=== PATIENT | female | born 1965 | race Caucasian/White ===

== ENCOUNTER 2021-07-04 10:06 | Day surgery (SDC) | payer OTHER, SELFPAY ==
[~2021-07-04] VITALS: Ht 157.5 cm; Wt 64.9 kg
[~2021-07-04 10:06] MED LIST: ALPR0.5T PO; SERT25TA PO
[2021-07-04] MEDS ORDERED: NS IRRIG SOLN 1000 ML IR ONE (12:57)
[2021-07-04] MEDS ORDERED: BUPIVACAINE /PF 0.25% 30 ML VIAL INJ ONE (12:57)
[2021-07-04] MEDS ORDERED: METOCLOPRAMIDE HCL 10 MG/2 ML VIAL ONE (12:57)
[2021-07-04] MEDS ORDERED: WATER FOR IRRIGATION,STERILE 1,000 ML IRRIG.SOLN IR ONE (12:57)
[2021-07-04] MEDS ORDERED: DEXAMETHASONE SOD PHOSPHATE 4 MG/ML VIAL ONE (12:57)
[2021-07-04] MEDS ORDERED: MIDAZOLAM HCL 5 MG/ML VIAL (VERSED) IV ONE (12:57)
[2021-07-04] MEDS ORDERED: SEVOFLURANE 15 MIN GAS INH ONE (12:57)
[2021-07-04] MEDS ORDERED: PROPOFOL 200MG/ 20ML VIAL (DIPRIVAN) IV ONE (12:57)
[2021-07-04] MEDS ORDERED: fentaNYL CITRATE/PF 100 MCG/2 ML AMP ONE (12:57)
[2021-07-04] MEDS ORDERED: LR 1,000 ML IV.SOLN IV ONE (12:57)
[2021-07-04] MEDS ORDERED: ONDANSETRON HCL 4 MG/2 ML VIAL ONE (12:57)
[2021-07-04 15:05] VITALS: BP_SYST 133
== END 2021-07-04 14:50 | disposition home or self-care (01) ==
LOC: SDS 10:06 → SMU 10:07 → SDS 14:50
PROVIDERS: ATTEND Orthopaedic Surgery
DX: G56.01 Carpal tunnel syndrome, right upper limb (principal); Z79.899 Other long term (current) drug therapy; Z20.822 Contact with and (suspected) exposure to COVID-19
CPT/HCPCS: 64721; J1100; J2250; J2405; J2704; J2765; J3010; J3490; J7120; U0003

== ENCOUNTER 2022-01-30 10:01 | Day surgery (SDC) | payer OTHER ==
[~2022-01-30] VITALS: Ht 157.5 cm; Wt 67.1 kg
[2022-01-30] MEDS ORDERED: LR 1,000 ML IV.SOLN IV ONE (12:34)
[2022-01-30] MEDS ORDERED: KETOROLAC TROMETHAMINE 30 MG VIAL ONE (12:34)
[2022-01-30] MEDS ORDERED: PROPOFOL 200MG/ 20ML VIAL (DIPRIVAN) IV ONE (12:34)
[2022-01-30] MEDS ORDERED: METOCLOPRAMIDE HCL 10 MG/2 ML VIAL ONE (12:34)
[2022-01-30] MEDS ORDERED: SEVOFLURANE 15 MIN GAS INH ONE (12:34)
[2022-01-30] MEDS ORDERED: fentaNYL CITRATE/PF 100 MCG/2 ML AMP ONE (12:34)
[2022-01-30] MEDS ORDERED: ONDANSETRON HCL 4 MG/2 ML VIAL ONE (12:34)
[2022-01-30] MEDS ORDERED: ONDANSETRON HCL 4 MG/2 ML VIAL IVP PRN (13:30)
[2022-01-30] MEDS ORDERED: LABETALOL 100 MG/ 20ML VIAL IVP PRN (13:30)
[2022-01-30] MEDS ORDERED: hydrALAZINE HCL 20 MG/ML VIAL IVP PRN (13:30)
[2022-01-30] MEDS ORDERED: LR 1,000 ML IV SCH (13:30)
[2022-01-30] MEDS ORDERED: HYDROmorphone 1 MG/ML INJ. CARTRIDGE IVP PRN (13:30)
[2022-01-30 17:31] VITALS: BP_SYST 143
== END 2022-01-30 14:50 | disposition home or self-care (01) ==
LOC: SDS 10:01 → SMU 10:07 → SDS 14:50
PROVIDERS: ATTEND Orthopaedic Surgery
DX: G56.02 Carpal tunnel syndrome, left upper limb (principal); Z98.890 Other specified postprocedural states; Z20.822 Contact with and (suspected) exposure to COVID-19
CPT/HCPCS: 36415 ×2; 64721; 87426; 87635; J1885; J2405; J2704; J2765; J3010; J7120; U0003

== ENCOUNTER 2022-03-25 07:21 | Day surgery (SDC) | payer OTHER ==
[~2022-03-25] VITALS: Ht 157.5 cm; Wt 67.1 kg
[2022-03-25] MEDS ORDERED: MIDAZOLAM HCL 5 MG/5 ML VIAL ONE (08:40)
[2022-03-25] MEDS ORDERED: DIPHENHYDRAMINE INJ 50 MG/ML VIAL ONE (08:41)
[2022-03-25] MEDS ORDERED: LIDOCAINE 2%, 20 ML MDV ONE (10:37)
[2022-03-25] MEDS ORDERED: methylPREDNISolone ACETATE 40 MG/ML ONE (10:37)
[2022-03-25] MEDS ORDERED: BUPIVACAINE /PF 0.25% 30 ML VIAL INJ ONE (10:37)
[2022-03-25] MEDS ORDERED: IOHEXOL 300 mgI/mL, 50 mL INFUS..BTL IV ONE (10:37)
[2022-03-25 14:16] VITALS: BP_SYST 145
== END 2022-03-25 11:30 | disposition home or self-care (01) ==
LOC: SDS 07:21 → SMU 07:21 → SDS 11:30
PROVIDERS: ATTEND Internal Medicine
DX: M51.16 Intervertebral disc disorders with radiculopathy, lumbar region (principal); M47.26 Other spondylosis with radiculopathy, lumbar region; G89.4 Chronic pain syndrome; Z90.49 Acquired absence of other specified parts of digestive tract; Z20.822 Contact with and (suspected) exposure to COVID-19
CPT/HCPCS: 36415 ×2; 62323; 87426; U0003; J3490; J1200; J2001; J1030; J2250; Q9967; 76000

== ENCOUNTER 2022-06-24 07:27 | Day surgery (SDC) | payer OTHER ==
[~2022-06-24] VITALS: Ht 157.5 cm; Wt 64.4 kg
[2022-06-24] MEDS ORDERED: MIDAZOLAM HCL 5 MG/5 ML VIAL ONE (09:25)
[2022-06-24] MEDS ORDERED: fentaNYL CITRATE/PF 100 MCG/2 ML AMP ONE (09:27)
[2022-06-24] MEDS ORDERED: DIPHENHYDRAMINE INJ 50 MG/ML VIAL ONE (09:27)
[2022-06-24] MEDS ORDERED: ONDANSETRON HCL 4 MG/2 ML VIAL ONE (09:28)
[2022-06-24 13:26] VITALS: BP_SYST 116
== END 2022-06-24 11:40 | disposition home or self-care (01) ==
LOC: SDS 07:27 → SMU 07:29 → SDS 11:40
PROVIDERS: ATTEND Internal Medicine
DX: M51.16 Intervertebral disc disorders with radiculopathy, lumbar region (principal); M47.26 Other spondylosis with radiculopathy, lumbar region; G89.4 Chronic pain syndrome; Z90.49 Acquired absence of other specified parts of digestive tract; Z79.899 Other long term (current) drug therapy; Z20.822 Contact with and (suspected) exposure to COVID-19
CPT/HCPCS: 36415; 62323; U0003; J1200; J2250; J3010; 76000; J2405

== ENCOUNTER 2023-02-24 06:48 | Day surgery (SDC) | payer OTHER ==
[~2023-02-24] VITALS: Ht 160 cm; Wt 65.8 kg
[2023-02-24] MEDS ORDERED: MIDAZOLAM HCL 5 MG/5 ML VIAL ONE (08:53)
[2023-02-24] MEDS ORDERED: fentaNYL CITRATE/PF 100 MCG/2 ML AMP ONE (08:54)
[2023-02-24] MEDS ORDERED: ONDANSETRON HCL 4 MG/2 ML VIAL ONE (08:54)
[2023-02-24] MEDS ORDERED: DIPHENHYDRAMINE INJ 50 MG/ML VIAL ONE (08:54)
[2023-02-24] MEDS ORDERED: NORMAL SALINE 10 ML VIAL ONE (09:00)
[2023-02-24] MEDS ORDERED: methylPREDNISolone ACETATE 40 MG/ML ONE (09:00)
[2023-02-24] MEDS ORDERED: ISOVUE-300 (IOPAMIDOL) 100 ML INFUS..BTL IV ONE (09:00)
[2023-02-24] MEDS ORDERED: IOPAMIDOL-M 300, 15 ML VIAL IT ONE (09:00)
[2023-02-24] MEDS ORDERED: LIDOCAINE 2%, 20 ML MDV ONE (09:00)
[2023-02-24 15:42] VITALS: BP_SYST 126
== END 2023-02-24 11:10 | disposition home or self-care (01) ==
LOC: SDS 06:48 → SMU 06:49 → SDS 11:10
PROVIDERS: ATTEND Internal Medicine
DX: M51.16 Intervertebral disc disorders with radiculopathy, lumbar region (principal); G89.4 Chronic pain syndrome; M47.816 Spondylosis without myelopathy or radiculopathy, lumbar region; Z79.899 Other long term (current) drug therapy
CPT/HCPCS: 62323; J1200; J2001; J1030; J2250; J3010; Q9967; 76000; J2405

== ENCOUNTER 2023-07-31 20:16 | Inpatient (IN) | payer OTHER ==
[~2023-07-31] VITALS: Ht 165.1 cm; Wt 68.0 kg
[2023-07-31 20:28] VITALS: BP_SYST 169; PULSE 91; RESP 19; TEMP 97.9; O2SAT 97
[2023-07-31] MEDS ORDERED: iohexoL 350 mgI/mL, 100 ML INFUS..BTL IV ONE (21:02)
[2023-07-31 21:26] LABS: BASOPHILS % (AUTO) 0.4 % (0.0-2.0); EOSINOPHILS # (AUTO) 0.1 K/uL (0.0-0.4); EOSINOPHILS % (AUTO) 1.4 % (0.0-4.0); HEMATOCRIT 41.3 % (36-48); HEMOGLOBIN 13.7 g/dL (12.0-16.0); LYMPHOCYTES # (AUTO) 1.7 K/uL (1.0-5.5); LYMPHOCYTES % (AUTO) 31.2 % (20.5-51.5); MEAN CORPUSCULAR HEMOGLOBIN 28 pg (27-31); MEAN CORPUSCULAR HGB CONC 33 % (32-36); MEAN CORPUSCULAR VOLUME 84 fL (79.0-98.0); MONOCYTES # (AUTO) 0.5 K/uL (0.0-1.0); MONOCYTES % (AUTO) 8.5 % (1.7-9.3); NEUTROPHILS # (AUTO) 3.2 K/uL (1.8-7.7); NEUTROPHILS % (AUTO) 58.5 % (40.0-70.0); PLATELET COUNT (AUTO) 252 K/uL (130-430); RED BLOOD CELL COUNT(AUTO) 4.93 MIL/uL (4.2-6.2); RED CELL DISTRIBUTION WIDTH 12.7 % (9.0-15.0); WHITE BLOOD COUNT (AUTO) 5.5 K/uL (4.8-10.8)
[2023-07-31 21:34] LABS: PROTHROMBIN TIME 10.3 SECS (9.5-12.5)
[2023-07-31 21:39] LABS: ANION GAP 8 (5-15); CALCIUM 9.5 mg/dL (8.4-11.0); CARBON DIOXIDE 30 mmol/L (23-29); CHLORIDE 101 mmol/L (98-107); CREATININE 0.56 mg/dL (0.55-1.30); GFR AFRICAN AMERICAN 143 mL/min (>90); GLUCOSE 144 mg/dL (74-106); POTASSIUM 3.4 mmol/L (3.5-5.1); SODIUM SERUM 139 mmol/L (136-145); UREA NITROGEN, BLOOD 11 mg/dL (8-21)
[2023-07-31 21:40] LABS: GFR NON AFRICAN-AMERICAN 118 mL/min (>90)
[2023-07-31 21:43] LABS: ALANINE AMINOTRANSFERASE 34 U/L (12-78); ALBUMIN 3.9 g/dL (3.4-4.8); ASPARTATE AMINOTRANSFERASE 16 U/L (10-37); BILIRUBIN,DIRECT 0.1 mg/dL (0.0-0.3); CHOLESTEROL 215 mg/dL (<200); HDL CHOLESTEROL 64 mg/dL (>55); TOTAL BILIRUBIN 0.3 mg/dL (0.0-1.0); TOTAL PROTEIN, SERUM 7.6 g/dL (6.4-8.3); TRIGLYCERIDES 76 mg/dL (30-150)
[2023-07-31 22:15] LABS: HEMOGLOBIN A1C 5.81 % (<5.7)
[2023-07-31] MEDS ORDERED: LORazepam 2 MG/ML VIAL IVP ONE (22:30)
[2023-07-31 22:31] LABS: BILIRUBIN,URINE NEGATIVE (NEGATIVE); BLOOD, URINE 1+ (NEGATIVE); CLARITY/URINE CLEAR (CLEAR); COLOR,URINE YELLOW (YELLOW); GLUCOSE,URINE NEGATIVE (NEGATIVE); KETONES,URINE NEGATIVE (NEGATIVE); LEUKOCYTE ESTERASE ,URINE 3+ (NEGATIVE); NITRITE, URINE NEGATIVE (NEGATIVE); PROTEIN URINE NEGATIVE (NEGATIVE); UROBILINOGEN,URINE 0.2 (0.2-1.0)
[2023-07-31 23:19] LABS: BACTERIA,URINE FEW /HPF (None Seen)
[2023-08-01] MEDS ORDERED: LORazepam 2 MG/ML VIAL ONE (01:17)
[2023-08-01] MEDS ORDERED: NOREPINEPHRINE 4 MG/4 ML VIAL IV ONE (01:37)
[2023-08-01] MEDS ORDERED: ONDANSETRON 4 MG ODT TAB PO PRN (06:00)
[2023-08-01] MEDS ORDERED: ASPIRIN 81 MG TABLET(ECOTRIN) PO ONE (06:00)
[2023-08-01 10:15] VITALS: BP_SYST 123; PULSE 84; RESP 16; TEMP 97.9; O2SAT 98
[2023-08-01] MEDS ORDERED: ATORVASTATIN 20 MG TABLET PO ONE (11:00)
[2023-08-01 11:04] LABS: BASOPHILS % (AUTO) 0.3 % (0.0-2.0); EOSINOPHILS # (AUTO) 0.1 K/uL (0.0-0.4); HEMATOCRIT 40.7 % (36-48); HEMOGLOBIN 13.6 g/dL (12.0-16.0); LYMPHOCYTES # (AUTO) 1.2 K/uL (1.0-5.5); MEAN CORPUSCULAR HEMOGLOBIN 28 pg (27-31); MEAN CORPUSCULAR HGB CONC 33 % (32-36); MEAN CORPUSCULAR VOLUME 83 fL (79.0-98.0); MONOCYTES # (AUTO) 0.4 K/uL (0.0-1.0); MONOCYTES % (AUTO) 7.5 % (1.7-9.3); NEUTROPHILS # (AUTO) 3.6 K/uL (1.8-7.7); NEUTROPHILS % (AUTO) 68.2 % (40.0-70.0); PLATELET COUNT (AUTO) 257 K/uL (130-430); RED BLOOD CELL COUNT(AUTO) 4.88 MIL/uL (4.2-6.2); RED CELL DISTRIBUTION WIDTH 12.9 % (9.0-15.0); WHITE BLOOD COUNT (AUTO) 5.3 K/uL (4.8-10.8)
[2023-08-01 11:25] LABS: ALBUMIN 3.9 g/dL (3.4-4.8); CALCIUM 9.2 mg/dL (8.4-11.0); CREATININE 0.5 mg/dL (0.55-1.30); POTASSIUM 3.4 mmol/L (3.5-5.1); TOTAL BILIRUBIN 0.6 mg/dL (0.0-1.0); TOTAL PROTEIN, SERUM 7.4 g/dL (6.4-8.3)
[2023-08-01 12:15] VITALS: BP_SYST 131; PULSE 81; RESP 16; TEMP 97.3; O2SAT 94
[2023-08-01] MEDS ORDERED: ASA81 PO (13:19)
[2023-08-01] MEDS ORDERED: SULF1TAB47 PO (13:19)
[2023-08-01] MEDS ORDERED: LIP20 PO (13:19)
[2023-08-01 13:53] VITALS: BP_SYST 131; PULSE 81; RESP 16; TEMP 97.3; O2SAT 94
[2023-08-01] MEDS ORDERED: cefTRIAXone 1 GM in D5W 50 ML IV SCH (21:00)
[2023-08-02] MEDS ORDERED: ASPIRIN 81 MG TAB.CHEW PO SCH (09:00)
[2023-08-02] MEDS ORDERED: ATORVASTATIN 20 MG TABLET PO SCH (09:00)
== END 2023-08-01 14:06 | disposition home or self-care (01) | DRG 69 ==
LOC: SED 20:16 → STU 08-01 05:56
PROVIDERS: ADMIT Family Medicine; ATTEND Family Medicine
DX: G45.9 Transient cerebral ischemic attack, unspecified (principal); N39.0 Urinary tract infection, site not specified; E78.5 Hyperlipidemia, unspecified; F41.9 Anxiety disorder, unspecified; R73.03 Prediabetes; F32.A Depression, unspecified; Z90.49 Acquired absence of other specified parts of digestive tract; Z79.82 Long term (current) use of aspirin; Z79.899 Other long term (current) drug therapy
CPT/HCPCS: 36415; 70450-TC; 70496; 70498; 71045; 76376; 80048; 80053; 80061; 80076; 81000; 81001; 81015; 82962; 83037; 84484; 85025; 85610-TC; 85730-TC; 86886; 86900; 86901; 87086; 93005; 96372; 99285; G0378; J0696; J2060; J7060; Q9967

== ENCOUNTER 2023-11-24 06:23 | Day surgery (SDC) | payer OTHER ==
[~2023-11-24] VITALS: Ht 160 cm; Wt 66.7 kg
[~2023-11-24 06:23] MED LIST changes: -ALPR0.5T PO; +ASA81 PO; +LIP20 PO; -SERT25TA PO; +SULF1TAB47 PO
[2023-11-24] MEDS ORDERED: DIPHENHYDRAMINE INJ 50 MG/ML VIAL ONE (07:38)
[2023-11-24] MEDS: MIDAZOLAM HCL 5 MG/5 ML VIAL ONE (08:45)
[2023-11-24] MEDS: fentaNYL CITRATE/PF 100 MCG/2 ML AMP ONE (08:47)
[2023-11-24] MEDS ORDERED: methylPREDNISolone ACETATE 40 MG/ML ONE (10:00)
[2023-11-24] MEDS ORDERED: LIDOCAINE 2%, 20 ML MDV ONE (10:00)
[2023-11-24] MEDS ORDERED: iopamidoL 50 ML VIAL IV ONE (10:00)
[2023-11-24] MEDS ORDERED: NORMAL SALINE 10 ML VIAL ONE (10:00)
[2023-11-24 15:29] VITALS: BP_SYST 156; PULSE 83; RESP 18; TEMP 98.6; O2SAT 99
== END 2023-11-24 09:19 | disposition home or self-care (01) ==
LOC: SDS 06:23 → SMU 06:24 → SDS 09:19
PROVIDERS: ATTEND Internal Medicine
DX: M51.16 Intervertebral disc disorders with radiculopathy, lumbar region (principal); M79.10 Myalgia, unspecified site; G89.4 Chronic pain syndrome; M47.816 Spondylosis without myelopathy or radiculopathy, lumbar region; Z90.49 Acquired absence of other specified parts of digestive tract; Z98.890 Other specified postprocedural states; Z79.899 Other long term (current) drug therapy
CPT/HCPCS: 62323; J1030; J2250; J3010; Q9967; 76000; J1200; J2001

== ENCOUNTER 2024-02-23 10:52 | Day surgery (SDC) | payer OTHER ==
[~2024-02-23] VITALS: Ht 160 cm; Wt 66.7 kg
[~2024-02-23 10:52] MED LIST changes: +LIDOCAINE 2%, 20 ML MDV ONE; +MIDAZOLAM HCL 5 MG/5 ML VIAL ONE; +fentaNYL CITRATE/PF 100 MCG/2 ML AMP ONE
[2024-02-23] MEDS: fentaNYL CITRATE/PF 100 MCG/2 ML AMP IVP ONE (13:32)
[2024-02-23 14:01] VITALS: O2SAT 96
[2024-02-23 16:19] VITALS: BP_SYST 134; PULSE 79; RESP 8
== END 2024-02-23 14:25 | disposition home or self-care (01) ==
LOC: SDS 10:52
PROVIDERS: ATTEND Internal Medicine
DX: M50.13 Cervical disc disorder with radiculopathy, cervicothoracic region (principal); Z90.49 Acquired absence of other specified parts of digestive tract; Z87.440 Personal history of urinary (tract) infections
CPT/HCPCS: 62321; J2250; J3010; Q9967; J1010; 76000; J1030; J2001